=== PATIENT | male | born 1970 | race Caucasian/White ===

== ENCOUNTER 2017-05-18 20:25 | Emergency (ER) | payer BC ==
[~2017-05-18] VITALS: Ht 185.4 cm; Wt 111.1 kg
[2017-05-18 20:25] VITALS: BP_SYST 159
[2017-05-18 22:41] LABS: BILIRUBIN,URINE NEGATIVE (NEGATIVE); BLOOD, URINE NEGATIVE (NEGATIVE); CLARITY/URINE CLEAR (CLEAR); COLOR,URINE YELLOW (YELLOW); GLUCOSE,URINE NEGATIVE (NEGATIVE); KETONES,URINE NEGATIVE (NEGATIVE); LEUKOCYTE ESTERASE ,URINE NEGATIVE (NEGATIVE); NITRITE, URINE NEGATIVE (NEGATIVE); PROTEIN URINE NEGATIVE (NEGATIVE); UROBILINOGEN,URINE 0.2 (0.2-1.0)
== END 2017-05-18 22:03 | disposition left against medical advice (07) ==
LOC: SED 20:25
DX: R53.1 Weakness (principal); R06.02 Shortness of breath; F41.9 Anxiety disorder, unspecified; R03.0 Elevated blood-pressure reading, without diagnosis of hypertension; Z53.21 Procedure and treatment not carried out due to patient leaving prior to being seen by health care provider
CPT/HCPCS: 81003; 99281